=== PATIENT | female | born 1950 | race Caucasian/White ===

== ENCOUNTER 2018-01-04 13:42 | Inpatient (IN) | payer MEDICARE ==
--- NOTE | 2018-01-04 14:07 | ED ---
HPI Chest Pain - HPI Summary HPI Summary: Patient is a 67 y/o F w/ c/o midsternal chest pain onsetting around 1209. Provider in room at 1350 to evaluate. Patient describes chest pain as a "squeezing" feeling. At the time, she was at work at her desk when Sx onset. She also notes radiation of chest pain to her neck. Patient states that the chest pain was worsening and she was experiencing SOB and felt hot and nauseated. Patient's son Tommy, a paper supervisor, picked her up, did an EKG on her which was taken at [address] Fernandes to reveal NSR, nml AVIVCT, no acute changes, no ectopy, not a STEMI. 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 After BP measurement, patient's son provided 324 mg ASA and 1 nitro. In ED, patient's BP was measured to be 146/86 upon arrival. PMX of diabetes, HTN is denied but patient's son notes that mother usually has high BP but has not had Dx of HTN. PMHx of HLD is endorsed. She had a stress test 3 months ago for a bout of paroxysmal afib with Dr. Godwin. Dr. Godwin wanted her to get a cardiac dye test but patient never did. PSHx of surgery for broken leg x2. Patient takes Wellbutrin 150 mg once a day, Lexapro 20 mg, crestor 5 mg. She denies smoking, rarely drinks, no other substances. FMHx of mother with ME at 70 , quadruple bypass at 77. Patient lives with son. Home medications and allergies are reviewed. On triage, pain is rated 4/10, nitro is noted to alleviate Sx, nothing is reported to aggravate. Allergies/Adverse Reactions: Allergies Allergy/AdvReac Type Severity Reaction Status Date / Time MS Dust Mite Extract Allergy Intermediate Shortness Verified 01/04/18 13:48 of Breath MS Molds & Smuts Allergy Intermediate Shortness Verified 01/04/18 13:48 of Breath - History of Current Complaint Chief Complaint: EDChestPainROMI Time Seen by Provider: 01/04/18 13:50 Hx Obtained From: Patient, Family/Beef Breaker - son Tommy Onset/Duration: Started Hours Ago - onset around 1209, Atraumatic, Worse Since Time of Onset: 12:09 Timing: Constant Initial Severity: Moderate Current Severity: Moderate - 4/10 Pain Intensity: 4 Pain Scale Used: 0-10 Numeric - 4/10 Chest Pain Location: Mid Sternal Chest Pain Radiates: Yes Chest Pain Radiates To:: Neck Character: Pressure/Squeezing Aggravating Factor(s): Nothing Alleviating Factor(s): NTG 123 - x1 given by son (experimental flight test mechanic), pt is private vehicle Associated Signs and Symptoms: Positive: Chest Pain, Shortness of Breath, Nausea , Other: - patient reports she felt hot - Risk Factors AMI/ACS Risk Factors: Family History - Allergy/Home Medications Allergies/Adverse Reactions: Allergies Allergy/AdvReac Type Severity Reaction Status Date / Time mold Allergy Shortness Verified 01/04/18 16:05 of Breath DUST MITE EXTRACT Allergy Intermediate Shortness Uncoded 01/04/18 19:10 of Breath Home Medications: Home Medications Albuterol HFA INHALER* [Ventolin HFA Inhaler*] 1 puff INH ONCE PRN 01/04/18 [ History Confirmed 01/04/18] Escitalopram (NF) [Lexapro 20 mg (NF)] 20 mg PO DAILY 01/04/18 [History Confirmed 01/04/18] Folic Acid TAB* [Folvite TAB*] 1 mg PO DAILY 01/04/18 [History Confirmed ] Grape Seed Extract 50 mg PO DAILY 01/04/18 [History Confirmed 01/04/18] Rosuvastatin (NF) [Crestor (NF)] 5 mg PO DAILY 01/04/18 [History Confirmed 01/04] PMH/Surg Hx/FS Hx/Imm Hx Previously Healthy: No Endocrine/Hematology History: Denies: Hx Diabetes, Hx Thyroid Disease Cardiovascular History: Reports: Hx Hypercholesterolemia Denies: Hx Hypertension Respiratory History: Denies: Hx Asthma, Hx Chronic Obstructive Pulmonary Disease (COPD) GI History: Denies: Hx Ulcer - Surgical History Surgery Procedure, Year, and Place: Right leg fracture repair 1993, 2011. C- Section x3 Infectious Disease History: No Infectious Disease History: Denies: Hx Hepatitis, Hx Human Immunodeficiency Virus (HIV), Traveled Outside the [place] in Last 30 Days - Family History Known Family History: Positive: Cardiac Disease - mother with ME at 70 - Social History Occupation: Employed Full-time Lives: With Family Alcohol Use: Rare Substance Use Type: Reports: None Smoking Status (MU): Never Smoked Tobacco Review of Systems Positive: Other - patient reports feeling hot Positive: Chest Pain - with radiation to neck Positive: Shortness Of Breath Positive: Nausea Musculoskeletal: Negative Skin: Negative Neurological: Negative Psychological: Normal All Other Systems Reviewed And Are Negative: Yes Physical Exam - Summary Physical Exam Summary: Appearance: Well-appearing, mild pain distress, well-nourished Skin: Warm, color reflects adequate perfusion, dry Head: Normal Head/Face inspection, atraumatic Eyes: Conjunctiva clear ENT: Normal inspection Neck: Supple, no nodes, no JVD Respiratory: Lungs clear, normal breath sounds, no respiratory distress Cardio: RRR, No murmur, pulses normal, brisk capillary refill Abdomen: Soft, nontender Bowel sounds: Present Musculoskeletal: Strength Intact/ROM intact, no calf tenderness, no edema. Psychological: Normal Neuro: Alert, muscle tone normal, no focal deficit Triage Information Reviewed: Yes Vital Signs On Initial Exam: Initial Vitals Temp Pulse Resp BP Pulse Ox 97.2 F 88 16 146/86 97 01/04/18 13:46 01/04/18 13:46 01/04/18 13:46 01/04/18 13:46 01/04/18 13:46 Vital Signs Reviewed: Yes Diagnostics - Vital Signs Vital Signs Temp Pulse Resp BP Pulse Ox 01/04/18 13:46 97.2 F 88 16 146/86 97 - Laboratory Result Diagrams: 01/04/18 14:02 01/04/18 14:02 Lab Statement: Any lab studies that have been ordered have been reviewed, and results considered in the medical decision making process. - Radiology CXR Xray Interpretation: No Acute Changes Radiology Interpretation Completed By: Radiologist - no active cardiopulmonary disease; this report was reviewed by ed physician. - EKG 1350 Cardiac Rate: NL - rate of 82 bpm EKG Rhythm: Sinus Rhythm ST Segment: Non-Specific Ectopy: None EKG Interpretation: nml AV/IV CT, nml QTc, and nml axis, no STEMI 1712 Cardiac Rate: NL - rate of 65 bpm EKG Rhythm: Sinus Rhythm ST Segment: Non-Specific Ectopy: None EKG Interpretation: nml AV/IV CT, nml QTc, and nml axis, no STEMI. Re-Evaluation - Re-Evaluation First Eval Re-Evaluation Time: 15:36 Change: Improved Comment: No chest pain in the room, vitals are 115/81 BP, pulse is 75, o2 is 95% . Second Eval Re-Evaluation Time: 17:10 Change: Worse Comment: Trop is 0.09, EKG repeated, not a STEMI. Pt is chest pain free. Third Eval Re-Evaluation Time: 17:17 Change: Unchanged Comment: Patient reports that she is comfortable and denies chest pain. Elevated trop and need for admission was discussed. Chest Pain Course/Dx - Course Course Of Treatment: Patient is a 67 y/o F w/ c/o midsternal chest pain onsetting around 1209. Provider in room at 1351 to evaluate. Patient describes chest pain as a "squeezing" feeling. At the time, she was at work at her desk when Sx onset. She also notes radiation of chest pain to her neck. Patient states that the chest pain was worsening and she was experiencing SOB and felt hot and nauseated. Patient's son Tommy, a paper supervisor, picked her up, did an EKG on her which was taken at [address] Fernandes to reveal NSR, nml AVIVCT, no acute changes, no ectopy, not a STEMI. Patient's BP was measured to be 170/100. After BP measurement, patient's son provided 324 mg ASA and 1 nitro. In ED, patient's BP was measured to be 146/86 upon arrival. PMX of diabetes, HTN is denied but patient's son notes that mother usually has high BP but has not had Dx of HTN. PMHx of HLD is endorsed. She had a stress test 3 months ago for a bout of paroxysmal afib with Dr. Godwin. Dr. Godwin wanted her to get a "cardiac dye test" but patient never did. Patient takes Wellbutrin 150 mg once a day, Lexapro 20 mg, crestor 5 mg. She denies smoking, rarely drinks, no other substances. FMHx of mother with ME at 70, quadruple bypass at 77. On physical exam, patient is noted to be in mild pain distress. CXR showed no active cardio pulmonary disease. EKG at 1350 showed normal sinus rhythm with rate of 82 BPM, no ectopy, non-specific ST, and nml AV/IV CT, nml QTc, and nml axis, no STEMI. Labs showed TSH 4.73, T4 7.02 BNP 12, lactic .9, d-dimer < 200. First trop was 0, second was 0.09. EKG at 1712 showed normal sinus rhythm with rate of 65 BPM, no ectopy, non-specific ST, and nml AV/IV CT, nml QTc, and nml axis, no STEMI. Patients case was discussed with Dr. Booker at 1718, Dr. Booker accepts for admission. Over the course of ED stay, patient reported that she was not experiencing chest pain anymore. Elevated troponin was discussed with patient and need for admission. Patient is agreeable. Dx of elevated troponin, chest pain. - Diagnoses Provider Diagnoses: Chest pain, Elevated troponin, Non-STEMI (non-ST elevated myocardial infarction ) - Provider Notifications Discussed Care Of Patient With: Greyson Booker Time Discussed With Above Provider: 17:18 Instructed by Provider To: Other - Patients case was discussed with Dr. Booker at 1718, Dr. Booker accepts for admission. - Critical Care Time Critical Care Time: 30-74 min - 30 minutes Discharge - Sign-Out/Discharge Documenting (check all that apply): Patient Departure - admit All imaging exams completed and their final reports reviewed: Yes - Discharge Plan Condition: Good Disposition: ADMITTED TO [facility] - Billing Disposition and Condition Condition: GOOD Disposition: Admitted to [facility] - Attestation Statements Document Initiated by Scribe: Yes Documenting Scribe: Ortiz Milan Provider For Whom Scribe is Documenting (Include Credential): Rupali Fernandes MD Scribe Attestation: Ortiz Maldonado , scribed for Rupali Fernandes MD on 01/05/18 at 0106. Scribe Documentation Reviewed: Yes Provider Attestation: The documentation as recorded by the Ortiz perez accurately reflects the service I personally performed and the decisions made by me, Rupali Fernandes MD
[2018-01-04 14:12] LABS: ABS Basophils 0.1 10^3/ul (0-0.2); ABS Eosinophils 0.1 10^3/ul (0-0.6); ABS Lymphocytes 1.6 10^3/ul (1.0-4.8); ABS Monocytes 0.6 10^3/ul (0-0.8); ABS Neutrophils 3.3 10^3/ul (1.5-7.7); ABS Nucleated RBC 0 10^3/ul; Eosinophil % 2.5 % (0-6); Hematocrit 41 % (35-47); Lymphocyte % 28.7 % (25-47); Mean Corpuscular HGB Conc 34 g/dl (31-36); Mean Corpuscular Hemoglobin 32 pg (27-31); Mean Corpuscular Volume 93 fL (80-97); Mean Platelet Volume 7.7 um3 (7.4-10.4); Nucleated Red Blood Cells % 0.1; Platelet Count 219 10^3/ul (150-450); Red Blood Count 4.41 10^6/ul (4.00-5.40); Red Cell Distribution Width 13 % (10.5-15); White Blood Count 5.7 10^3/ul (3.5-10.8)
--- NOTE | 2018-01-04 14:15 | RAD ---
HISTORY: chest pain COMPARISONS: None VIEWS: 1: frontal AP view of the chest at 1:58 PM FINDINGS: LINES AND TUBES: None. CARDIOMEDIASTINAL SILHOUETTE: The cardiomediastinal silhouette is normal for portable technique. PLEURA: The costophrenic angles are sharp. No pleural abnormalities are noted. LUNG PARENCHYMA: The lungs are clear. ABDOMEN: The upper abdomen is clear. There is no subphrenic gas. BONES AND SOFT TISSUES: No bone or soft tissue abnormalities are noted. IMPRESSION: NO ACTIVE CARDIOPULMONARY DISEASE.
[2018-01-04 14:51] LABS: INR 0.86 (0.77-1.02)
[2018-01-04] MEDS ORDERED: Albuterol HFA INHALER* 8 gm MDI INH PRN (18:55)
[2018-01-04] MEDS ORDERED: Docusate CAP* 100 MG PO PRN (18:56)
[2018-01-04] MEDS: Metoprolol Tartrate TAB* 25 MG PO SCH (20:54)
[2018-01-04] MEDS: Enoxaparin(*) 80 MG/0.8 ML SYR SUBCUT SCH (20:54)
[2018-01-04] MEDS ORDERED: ROSUVASTATIN 10 MG PO SCH (21:00)
[2018-01-04] MEDS: Acetaminophen TAB* 325 MG PO PRN (21:18)
--- NOTE | 2018-01-04 22:04 | HP ---
CC: Dr. Jhaveri; Dr. Godwin* ADMISSION HISTORY AND PHYSICAL: DATE OF ADMISSION: 01/04/2018. PRIMARY CARE PROVIDER: Simran Jhaveri MD HEALTHCARE PROXY: Her son, Tommy. CODE STATUS: Full. SOURCE OF INFORMATION: History obtained from interview with patient, review of past medical records, review of ED physician records. RELIABILITY: Good. CHIEF COMPLAINT: Chest pain. HISTORY OF PRESENT ILLNESS: A 67-year-old female with past medical history of intermittent palpitations since March for which she followed up with Dr. Jhaveri, received a Holter as well as a stress test several months prior. Stress test indicated that with exercise, there were diffuse ST changes in recovery that did not reach significance. At that time, repeat stress testing with imaging was recommended if symptoms should persist. Recently, she has been feeling well; however, today, she was sitting at her desk at work and developed substernal chest pressure radiating to her left neck that became progressively worse, described as squeezing associated with a warmth as well as nausea. She went home and called their son, who is a picker / packer. She noted when ambulating home going upstairs did not make her chest discomfort worse. She walked downstairs with her son to the fire station, received an EKG as well as a nitro and 4 aspirins with a little improvement. She denied no lightheadedness or syncope, but did indicate shortness of breath at the time of her chest discomfort. She presented to the emergency room with pain was improved. Initial troponin was 0.00 increased to 0.09 for which the hospitalist service was consulted. PAST MEDICAL HISTORY: Includes hyperlipidemia; sleep apnea, not on CPAP; depression; mild intermittent asthma; history of 2 tib-fib fractures on the right with surgery as well as 3 C-sections. MEDICATIONS: Reviewed, include: 1. Albuterol HFA once as needed. 2. Grape seed extract 50 mg daily. 3. Folic acid 1 mg daily. 4. Escitalopram 20 mg daily. 5. Rosuvastatin 5 mg daily. 6. Bupropion SR 150 mg daily. 7. Vitamin D cap 2000 units daily. ALLERGIES: No known drug allergies. Please note had myalgias to atorvastatin. FAMILY HISTORY: Her mother had an NV in her 70s. Father had no NV or CVAs. SOCIAL HISTORY: Lives with her son. No tobacco. Very rare Alcohol. No illicit. REVIEW OF SYSTEMS: As per HPI. Otherwise, all other systems negative. PHYSICAL EXAMINATION GENERAL: Sitting up in bed, interactive, pleasant, in no apparent distress. VITAL SIGNS: Vitals seen by this author 156/84, heart rate of 76, respiratory rate of 16. She is 97% on room air. T-max in the emergency room is 97.2. HEENT: Oropharynx is clear. She has moist mucous membranes. Sclerae are anicteric. NECK: She has non-elevated JVD. No cervical or supraclavicular lymphadenopathy. LUNGS: Clear to auscultation. HEART: She has regular rate and rhythm. She has no murmurs, rubs, or gallops. ABDOMEN: Soft, nontender, nondistended. EXTREMITIES: Warm and well perfused without clubbing, cyanosis, or edema. She has less than 2-second cap refill on her hand. NEURO: She is A and O x3. Her cranial nerves II through XII are intact. She has no apparent anxiety, agitation, or depression. LABORATORY DATA/DIAGNOSTIC STUDIES: Pertinent laboratory reviewed. First troponin was 0.00, increased to 0.09 in two and a half hours. Her BNP is 12. White blood cell count was 5.7. Data reviewed. EKG: Normal sinus rhythm, ventricular rate of 65. No ST or T wave changes. No Q waves. Good R wave progression. Chest x-ray, impression: No active cardiopulmonary disease. ASSESSMENT AND PLAN: Ms. Fernandez is a 67-year-old female, recent stress test with diffuse ST changes in recovery that did not reach significance, now returning with chest discomfort and elevated troponin on second check. 1. Non-ST elevation myocardial infarction. Cycle troponins q.3 hours, Lovenox full dose starting this evening, metoprolol 12.5 mg q.12 hours. The patient has myalgias to atorvastatin, continue her Crestor. 2. Aspirin 81 mg starting tomorrow. She received 325 mg tonight. Based on troponins, may need echocardiogram and/or Cardiology consultation and/or stay until Sunday for stress with imaging based on previous testing. 3. Hyperlipidemia. Crestor as above. 4. Asthma. P.r.n. albuterol as above. 5. Depression. Escitalopram as indicated above. 6. DVT prophylaxis. Full dose Lovenox. [id number]/CPS #: [id number] MTDD
[2018-01-04] MEDS: Melatonin 3 MG TAB PO SCH (22:24)
[2018-01-05 05:06] LABS: ABS Basophils 0 10^3/ul (0-0.2); ABS Eosinophils 0.2 10^3/ul (0-0.6); ABS Lymphocytes 1.7 10^3/ul (1.0-4.8); ABS Monocytes 0.6 10^3/ul (0-0.8); ABS Neutrophils 2.8 10^3/ul (1.5-7.7); ABS Nucleated RBC 0 10^3/ul; Eosinophil % 3.3 % (0-6); Hematocrit 40 % (35-47); Lymphocyte % 32.6 % (25-47); Mean Corpuscular HGB Conc 35 g/dl (31-36); Mean Corpuscular Hemoglobin 32 pg (27-31); Mean Corpuscular Volume 93 fL (80-97); Mean Platelet Volume 7.7 um3 (7.4-10.4); Nucleated Red Blood Cells % 0.2; Platelet Count 192 10^3/ul (150-450); Red Blood Count 4.32 10^6/ul (4.00-5.40); Red Cell Distribution Width 14 % (10.5-15); White Blood Count 5.3 10^3/ul (3.5-10.8)
[2018-01-05 05:29] LABS: EGFR Non-African American 66.2 (>60)
[2018-01-05] MEDS: Aspirin 81 mg CHEW TAB* 81 MG TAB.CHEW PO SCH (08:26)
[2018-01-05] MEDS: Folic Acid TAB* 1 MG PO SCH (08:26)
[2018-01-05] MEDS: buPROPion SR TAB.SR* 150 MG PO SCH (08:27)
[2018-01-05] MEDS: Metoprolol Tartrate TAB* 25 MG PO SCH ×2 (08:27→20:24)
[2018-01-05] MEDS: Enoxaparin(*) 80 MG/0.8 ML SYR SUBCUT SCH ×2 (08:28→20:30)
[2018-01-05] MEDS: CMCS:Escitalopram (NF) 10 MG TAB PO SCH ×2 (08:31→20:23)
[2018-01-05] MEDS ORDERED: Atorvastatin* 10 MG TAB PO SCH (09:00)
--- NOTE | 2018-01-05 16:39 | PN ---
Subjective Date of Service: 01/05/18 Interval History: No additional CP since admission ambulating without pain no SOB Objective Active Medications: Acetaminophen (Tylenol Tab*) 650 mg PO Q4H PRN PRN Reason: FEVER/PAIN Last Admin: 01/04/18 21:18 Dose: 650 mg Albuterol (Ventolin Hfa Inhaler*) 1 puff INH ONCE PRN PRN Reason: WHEEZING Stop: 01/05/18 18:54 Aspirin (Aspirin 81 Mg Chew Tab*) 81 mg PO DAILY [facility] Last Admin: 01/05/18 08:26 Dose: 81 mg Bupropion HCl (Wellbutrin Sr Tab*) 150 mg PO DAILY [facility] Last Admin: 01/05/18 08:27 Dose: 150 mg Docusate Sodium (Colace Cap*) 100 mg PO BID PRN PRN Reason: CONSTIPATION Enoxaparin Sodium (Lovenox(*)) 80 mg SUBCUT Q12HR [facility] Stop: 01/05/18 21:01 Last Admin: 01/05/18 08:28 Dose: 80 mg Escitalopram Oxalate (Lexapro (Nf)) 20 mg PO BEDTIME [facility] Last Admin: 01/05/18 08:31 Dose: Not Given Folic Acid (Folvite Tab*) 1 mg PO DAILY [facility] Last Admin: 01/05/18 08:26 Dose: 1 mg Melatonin (Melatonin) 3 mg PO BEDTIME [facility] Last Admin: 01/04/18 22:24 Dose: 3 mg Metoprolol Tartrate (Lopressor Tab*) 12.5 mg PO Q12HR [facility] Last Admin: 01/05/18 08:27 Dose: 12.5 mg Rosuvastatin Calcium (Crestor (Nf)) 5 mg PO 2100 [facility]; Protocol Vital Signs - 8 hr 01/05/18 01/05/18 01/05/18 10:52 15:35 15:58 Temperature 98.4 F 98.0 F Pulse Rate 64 71 67 Respiratory 16 15 Rate Blood Pressure 106/63 106/63 (mmHg) O2 Sat by Pulse 96 99 94 Oximetry Oxygen Devices in Use Now: None Appearance: NAD Eyes: No Scleral Icterus, PERRLA Ears/Nose/Mouth/Throat: NL Teeth, Lips, Gums, Clear Oropharnyx Neck: NL Appearance and Movements; NL JVP, Trachea Midline Respiratory: Symmetrical Chest Expansion and Respiratory Effort, Clear to Auscultation Cardiovascular: NL Sounds; No Murmurs; No JVD, RRR Abdominal: NL Sounds; No Tenderness; No Distention, No Hepatosplenomegaly Extremities: No Edema Skin: No Rash or Ulcers Neurological: Alert and Oriented x 3 Result Diagrams: 01/05/18 04:47 01/05/18 04:47 Assess/Plan/Problems-Billing Assessment: 67 yo F h/o HLD, depression p/w chest pain - Patient Problems (1) NSTEMI (non-ST elevated myocardial infarction) Comment: Elevated trop Stress with imaging recommended based on previous stress test 1 last full dose lovenox this evening ASA metoprolol Stress on Sunday ordered NPO Midnight Sunday (2) Hyperlipidemia Comment: Home crestor (3) Depression Comment: wellbutrin (4) DVT prophylaxis Comment: lovenox tonight
[2018-01-05] MEDS: Melatonin 3 MG TAB PO SCH (20:24)
[2018-01-05] MEDS: Rosuvastatin (NF) 10 MG TAB PO SCH (20:26)
[2018-01-05] MEDS: Acetaminophen TAB* 325 MG PO PRN (20:42)
[2018-01-06] MEDS: Acetaminophen TAB* 325 MG PO PRN (03:58)
[2018-01-06] MEDS: Folic Acid TAB* 1 MG PO SCH (08:23)
[2018-01-06] MEDS: buPROPion SR TAB.SR* 150 MG PO SCH (08:23)
[2018-01-06] MEDS: Aspirin 81 mg CHEW TAB* 81 MG TAB.CHEW PO SCH (08:23)
[2018-01-06] MEDS: Metoprolol Tartrate TAB* 25 MG PO SCH ×2 (08:23→21:54)
--- NOTE | 2018-01-06 15:54 | PN ---
Subjective Date of Service: 01/06/18 Interval History: Ambulating around unit without CP/SOB No complaints Objective Active Medications: Acetaminophen (Tylenol Tab*) 650 mg PO Q4H PRN PRN Reason: FEVER/PAIN Last Admin: 01/06/18 03:58 Dose: 650 mg Aspirin (Aspirin 81 Mg Chew Tab*) 81 mg PO DAILY [facility] Last Admin: 01/06/18 08:23 Dose: 81 mg Bupropion HCl (Wellbutrin Sr Tab*) 150 mg PO DAILY [facility] Last Admin: 01/06/18 08:23 Dose: 150 mg Docusate Sodium (Colace Cap*) 100 mg PO BID PRN PRN Reason: CONSTIPATION Escitalopram Oxalate (Lexapro (Nf)) 20 mg PO BEDTIME [facility] Last Admin: 01/05/18 20:23 Dose: 20 mg Folic Acid (Folvite Tab*) 1 mg PO DAILY [facility] Last Admin: 01/06/18 08:23 Dose: 1 mg Melatonin (Melatonin) 3 mg PO BEDTIME [facility] Last Admin: 01/05/18 20:24 Dose: 3 mg Metoprolol Tartrate (Lopressor Tab*) 12.5 mg PO Q12HR [facility] Last Admin: 01/06/18 08:23 Dose: 12.5 mg Rosuvastatin Calcium (Crestor (Nf)) 5 mg PO 2100 [facility]; Protocol Last Admin: 01/05/18 20:26 Dose: 5 mg Vital Signs - 8 hr 01/06/18 01/06/18 11:35 15:33 Temperature 97.9 F 98.2 F Pulse Rate 65 68 Respiratory 20 16 Rate Blood Pressure 115/70 118/66 (mmHg) O2 Sat by Pulse 98 97 Oximetry Oxygen Devices in Use Now: None Appearance: NAD Eyes: No Scleral Icterus, PERRLA Ears/Nose/Mouth/Throat: Clear Oropharnyx, Mucous Membranes Moist Neck: NL Appearance and Movements; NL JVP, Trachea Midline Respiratory: Symmetrical Chest Expansion and Respiratory Effort, Clear to Auscultation Cardiovascular: RRR Abdominal: NL Sounds; No Tenderness; No Distention, No Hepatosplenomegaly Lymphatic: No Cervical Adenopathy Extremities: No Edema Skin: No Rash or Ulcers Neurological: Alert and Oriented x 3 Result Diagrams: 01/05/18 04:47 01/05/18 04:47 Assess/Plan/Problems-Billing Assessment: 67 yo F h/o HLD, depression p/w chest pain - Patient Problems (1) NSTEMI (non-ST elevated myocardial infarction) Comment: Elevated trop on admission Recent stress with imaging recommended based on previous stress test full dose lovenox stopped ASA metoprolol Stress on Sunday ordered NPO Midnight Sunday (2) Hyperlipidemia Comment: Home dose crestor (3) Depression Comment: wellbutrin (4) DVT prophylaxis Comment: HSQ
[2018-01-06] MEDS: Rosuvastatin (NF) 10 MG TAB PO SCH (21:51)
[2018-01-06] MEDS: CMCS:Escitalopram (NF) 10 MG TAB PO SCH (21:51)
[2018-01-06] MEDS: Melatonin 3 MG TAB PO SCH (21:53)
[2018-01-06] MEDS: Heparin VIAL(*) 5000 UNITS/ML VIAL (FIVE THOUSAND) SUBCUT SCH (21:54)
[2018-01-07] MEDS: Heparin VIAL(*) 5000 UNITS/ML VIAL (FIVE THOUSAND) SUBCUT SCH ×2 (06:08→13:48)
[2018-01-07 08:57] VITALS: BP 124/68
[2018-01-07] MEDS: Metoprolol Tartrate TAB* 25 MG PO SCH (09:03)
[2018-01-07] MEDS: buPROPion SR TAB.SR* 150 MG PO SCH (09:05)
[2018-01-07] MEDS: Folic Acid TAB* 1 MG PO SCH (09:06)
[2018-01-07] MEDS: Aspirin 81 mg CHEW TAB* 81 MG TAB.CHEW PO SCH (09:06)
[2018-01-07] MEDS ORDERED: Regadenoson* 0.4 MG/5 ML SYRINGE ONE (12:01)
--- NOTE | 2018-01-07 13:38 | RAD ---
Edited for charges. INDICATION: Chest pain. COMPARISON: There are no relevant prior studies available for comparison. Technique: A single day myocardial perfusion stress study was performed. Initially the resting study was performed. The patient was given an intravenous injection of 10.6 mCi of technetium 99m tetrofosmin and and the heart was imaged in multiple projections. The patient returned later in the day and under the direction of Dr. Lin, the patient was given intervenous injection of Lexiscan. Subsequently the patient was given intravenous injection of 25.5 mCi of technetium 99m tetrofosmin and the heart was imaged in multiple projections. Images were reconstructed in the axial, sagittal and coronal planes and in a 3- D format. FINDINGS: There appears to be normal wall motion and myocardial thickening. The left ventricular ejection fraction was calculated to be 77%. Review of the images demonstrates no evidence for significant perfusion defect. There is no evidence for infarct or ischemia. IMPRESSION: NO EVIDENCE FOR INFARCT OR ISCHEMIA. ASSESSMENT: Low risk. Based on imaging criteria from ACC/AHA 2002 Guideline Update for the Management of Patients With Chronic Stable Angina Table 23. Noninvasive Risk Stratification. MTDD
--- NOTE | 2018-01-08 08:29 | DS ---
CC: Dr. Jhaveri * DISCHARGE SUMMARY: DATE OF ADMISSION: 01/04/18 DATE OF DISCHARGE: 01/07/18 PRIMARY CARE PROVIDER: Dr. Jhaveri. DISCHARGE DIAGNOSIS: Chest pain with low-probability cardiac stress test documented on 01/07/18. SECONDARY DIAGNOSES: 1. Hyperlipidemia. 2. Sleep apnea, not on CPAP. 3. Depression. MEDICATIONS AT DISCHARGE: Unchanged from admission and include: 1. Albuterol inhaler on p.r.n. basis. 2. Wellbutrin SR 150 mg daily. 3. Lexapro 20 mg daily. 4. Folvite 1 mg daily. 5. Grape seed extract 50 mg daily. 6. Crestor 5 mg at bedtime. 7. Vitamin D 50,000 units as previously prescribed by Dr. Jhaveri. LABORATORY DATA AND STUDIES PERFORMED DURING THE HOSPITAL STAY: Please note that the patient's troponin on 01/04/18 at 2 p.m. was 0, at 4:30 p.m. was 0.09, at 8:18 p.m. was 0.07, and at 11:49 p.m. was 0 again. Troponin was also 0 approximately 2 hours after the last troponin mentioned on 01/05/18 shortly after midnight. The patient's cholesterol profile showed triglycerides of 177, cholesterol total of 161, LDL of 86, and HDL of 39. TSH was 4.7, T4 was 0.02. Cardiac stress test, which was pharmacologic nuclear part of the stress test documented on 01/07/18, impression: "Low risk." There was no evidence for infarct or ischemia and EF was calculated at 77%. HOSPITALIZATION COURSE: Aye Fernandez is a 67-year-old female who has history of chest pain for which she was evaluated with treadmill exercise stress test in July of 2017, which showed nonspecific ST changes. Subsequently, she was recommended nuclear cardiac stress test, which she had not done until she was admitted to our hospital on 01/04/18 for chest pain radiating to the jaw. For further details of the patient's presentation, please see history and physical. Briefly, the patient was admitted to the hospital. The patient's initial troponin was 0 but the second one was 0.09. Please note that troponins were basically drawn every 2 hours and the first one was negative, the second one was appeared to be significantly higher. The one at 8 p.m. on 01/04/18 was 0.07 but the one right after was at 11 p.m., was 0 again. There was some inconsistent laboratory values at that point. The patient had EKG that showed no abnormalities and she was placed on overnight observation. Due to the stress test not being able to be performed overnight, the patient was kept until Sunday where she had a pharmacologic cardiac stress test performed, which showed low risk. The patient had no recurrence of chest pain during her hospital stay. I discussed with the patient at length the inconsistencies in her laboratory values of her troponins. At this point, I suspect the possibility of cardiac disease on the basis of negative cardiac stress is rather low. I also suspect that the patient's mild elevation of troponin at admission was likely due to lab error. At this point, the patient is going to be discharged home with recommendation to follow up with her primary care provider in approximately 4 to 7 days. PHYSICAL EXAM AT THE TIME OF DISCHARGE: Blood pressure of 124/68, heart rate of 65 and regular, respiratory rate 16, oxygen saturation 96% on room air, temperature 97.6. General: The patient is a very pleasant 67-year-old female who is in no acute distress. Alert, awake, and oriented x3. HEENT: Head, atraumatic, normocephalic. Eyes: Pupils are equal and reactive to light and accommodation. Oropharynx clear, mucosa moist. Neck: Supple. No JVD. No bruit bilaterally. Cardiovascular: Regular rate and rhythm, no murmur. Respiratory: Clear to auscultation bilaterally. Abdomen: Soft, nontender. Bowel sounds present in all quadrants. Extremities: There is no edema, pulses +2 bilaterally. No clubbing or cyanosis. On neuro evaluation, speech clear. Cranial nerves II through XII grossly intact. Motor strength is 5/5 bilaterally. Please note that this is a short summary of the patient's hospitalization. Please refer to further medical records for details. [id number]/[facility] #: [id number] MTDD
== END 2018-01-07 14:30 | disposition home or self-care (01) | DRG 313 ==
LOC: ED 13:42 → MEDTELE 18:56
PROVIDERS: ADMIT Internal Medicine; ATTEND Internal Medicine
DX: R07.9 Chest pain, unspecified (principal); E78.5 Hyperlipidemia, unspecified; G47.30 Sleep apnea, unspecified; F32.9 Major depressive disorder, single episode, unspecified; J45.20 Mild intermittent asthma, uncomplicated; I48.0 Paroxysmal atrial fibrillation; Z91.048 Other nonmedicinal substance allergy status; Z72.89 Other problems related to lifestyle
CPT/HCPCS: 36415; 71045; 78452; 80048; 80053; 80061; 82550; 82553; 83605; 83735; 83880; 84436; 84443; 84484; 85025; 85379; 85610; 93005; 93017; 99284; A9270-GY; A9502; J1644; J1650; J2785

== ENCOUNTER 2018-10-02 15:35 | Emergency (ER) | payer MEDICARE ==
[2018-10-02] MEDS ORDERED: Ondansetron INJ* 2 MG/ML VIAL IV ONE (15:50)
[2018-10-02] MEDS ORDERED: Metoclopramide IV* 5 MG/ML 2 ML VIAL IV SLOW PU ONE (15:50)
[2018-10-02] MEDS ORDERED: NS 0.9% 1000 ML** 1,000 ML IV ONE (15:50)
--- NOTE | 2018-10-02 15:51 | ED ---
Adult Trauma - HPI Summary HPI Summary: A 67 y/o female brought in by [facility] ambulance presents to [facility] with a chief complaint of a fall while at [facility] falls with her grandchildren. The patient denies any LOC, blurry vision, photophobia, fever, chills, erythema of eyes, sore throat, CP, cough, abdominal pain, N/V, dysuria, hematuria, myalgia, rash, or dizziness. She says that she has head pain that radiates down to her neck and into her right shoulder and jaw and can remember hitting her head. She then had some slight confusion. She rated her headache as a 3/10 in severity. - History of Current Complaint Stated Complaint: FALL PER EMS Time Seen by Provider: 10/02/18 15:39 Hx Obtained From: Patient, EMS Mechanism of Injury: Fall Loss of Consciousness: no loss of consciousness Onset/Duration: Started Minutes Ago Onset of Pain: Immediate, Post Accident, Prior to Arrival Onset Severity: Mild Current Severity: Mild Pain Intensity: 3 Pain Scale Used: 0-10 Numeric Location: Head Aggravating Factor(s): Nothing Alleviating Factor(s): Nothing Associated Signs & Symptoms: Negative: SOB, Chest Pain, Cough, Fever, Nausea/ Vomiting, Loss of Consciousness - Additional Pertinent History Primary Care Physician: KYLAH - Allergy/Home Medications Allergies/Adverse Reactions: Allergies Allergy/AdvReac Type Severity Reaction Status Date / Time mold Allergy Shortness Verified 01/04/18 16:05 of Breath DUST MITE EXTRACT Allergy Intermediate Shortness Uncoded 01/04/18 19:10 of Breath Home Medications: Home Medications Cholecalciferol (Vitamin D3) [Vitamin D3] 2,000 unit PO DAILY 10/02/18 [History Confirmed 10/02/18] PMH/Surg Hx/FS Hx/Imm Hx Endocrine/Hematology History: Reports: Other Endocrine/Hematological Disorders - HLD Denies: Hx Diabetes, Hx Thyroid Disease, Hx Anemia Cardiovascular History: Reports: Hx Angina, Hx Hypercholesterolemia Denies: Hx Aneurysm, Hx Angioplasty, Hx Auto Implanted Cardiovert Defib, Hx Coronary Artery Disease, Hx Hypertension, Hx Myocardial Infarction, Hx Valvular Heart Disease Respiratory History: Reports: Hx Sleep Apnea Denies: Hx Asthma, Hx Chronic Bronchitis, Hx Chronic Obstructive Pulmonary Disease (COPD) GI History: Denies: Hx Cirrhosis, Hx Crohn's Disease, Hx Diverticulosis, Hx Gall Bladder Disease, Hx Gastroesophageal Reflux Disease, Hx Gastrointestinal Bleed, Hx Hiatal Hernia, Hx Irritable Bowel, Hx Jaundice, Hx Obstructive Bowel, Hx Pyloric Stenosis, Hx Ulcer History: Denies: Hx Acute Renal Failure, Hx Benign Prostatic Hyperplasia, Hx Chronic Renal Failure, Hx Dialysis, Hx Kidney Infection, Hx Kidney Stones Musculoskeletal History: Denies: Hx Arthritis, Hx Bursitis, Hx Fibromyalgia, Hx Gout, Hx Orthopedic Injury, Hx Osteoporosis, Hx Scoliosis, Hx Tendonitis Sensory History: Denies: Hx Cataracts, Hx Contacts or Glasses, Hx Eye Injury, Hx Glaucoma, Hx Legally Blind, Hx Vision Problem, Hx Deafness, Hx Hearing Aid, Hx Hearing Problem Opthamlomology History: Denies: Hx Cataracts, Hx Contacts or Glasses, Hx Eye Injury, Hx Glaucoma, Hx Legally Blind, Hx Vision Problem Neurological History: Reports: Hx Headaches Denies: Hx Dementia, Hx Developmental Delay, Hx Seizures, Hx Spinal Cord Injury, Hx Transient Ischemic Attacks (TIA) Psychiatric History: Denies: Hx Anxiety, Hx Attention Deficit Hyperactivity Disorder - Surgical History Surgery Procedure, Year, and Place: Right leg fracture repair 1993, 2011. C- Section x3 Infectious Disease History: No Infectious Disease History: Denies: Hx Hepatitis, Hx Human Immunodeficiency Virus (HIV), Hx of Known/ Suspected MRSA, Hx Shingles, Hx Tuberculosis, Hx Known/Suspected VRE, Hx Known/ Suspected VRSA, Traveled Outside the [place] in Last 30 Days - Family History Known Family History: Positive: Cardiac Disease - mother with MS at 70 - Social History Alcohol Use: Rare Substance Use Type: Reports: None Smoking Status (MU): Never Smoked Tobacco Review of Systems Negative: Fever, Chills Negative: Photophobia, Blurred Vision, Erythema Negative: Sore Throat Negative: Chest Pain Negative: Shortness Of Breath, Cough Negative: Abdominal Pain, Vomiting, Nausea Negative: dysuria, hematuria Negative: Myalgia, Edema Negative: Rash Neurological: Negative - LOC, dizziness Positive: Headache - after fall and hitting her head All Other Systems Reviewed And Are Negative: Yes Physical Exam - Summary Physical Exam Summary: Constitutional: Well-developed, Well-nourished, Alert HENT: Normocephalic. No Racoons eyes, No battles sign, No abrasion, No contusion , No hemotympanum, No maxilla facial tenderness or instability, Dentition are smooth, No dental trauma, No trismus, able to open and close mouth fully Eyes: EOM normal, PERRL Neck: Trachea normal, No stridor, No JVD, No cervical step off, No posterior cervical spine tenderness Cardio: Rhythm regular, rate normal, Heart sounds normal, Intact distal pulses, The pedal pulses are 2+ and symmetric. Radial pulses are 2+ and symmetric. Pulmonary/Chest wall: Effort normal, Breath sounds normal, (-) Stridor, Equal chest rise, No flail segment, No rib tenderness, No substernal tenderness Abd: Soft, Appearance normal. (-) Distension, (-) Tenderness, No palpable pulsatile mass, No Cullens sign, No Polanco-Turners sign. Musculoskeletal: Full ROM and no tenderness at hips, ankles, shoulders, elbows and knees; No joint swelling; No vertebral body tenderness; No paraspinal tenderness; No step off or deformity of the spine; Pelvis is stable to lateral compression and rock, no bony tenderness : No blood at urethral meatus, No vertebral body tenderness, No paraspinal tenderness, No step-off or deformity of spine, Pelvic stable to lateral compression and rock Neuro: Alert, Strength 5/5 all extremities. Reproducible Skin: Warm, Dry, Skin intact Triage Information Reviewed: Yes Vital Signs On Initial Exam: Initial Vitals Temp Pulse Resp BP Pulse Ox 98.5 F 76 18 174/81 96 10/02/18 15:38 10/02/18 15:38 10/02/18 15:38 10/02/18 15:38 10/02/18 15:38 Vital Signs Reviewed: Yes - [place] Coma Scale Best Eye Response: 4 - Spontaneous Best Motor Response: 6 - Obeys Commands Best Verbal Response: 5 - Oriented Coma Scale Total: 15 Diagnostics - Vital Signs Vital Signs Temp Pulse Resp BP Pulse Ox 10/02/18 15:38 98.5 F 76 18 174/81 96 - Laboratory Lab Statement: Any lab studies that have been ordered have been reviewed, and results considered in the medical decision making process. - CT Maxillofacial CT Interpretation Completed By: Radiologist Summary of CT Findings: No fracture of the facial bones is identified. ED physician has reviewed this imaging report. Cervical spine CT Interpretation Completed By: Radiologist Summary of CT Findings: Multilevel degenerative disc disease without evidence of fracture. ED physician has reviewed this imaging report. Brain CT Interpretation Completed By: Radiologist Summary of CT Findings: There is no evidence of intracranial mass or hemorrhage. ED physician has reviewed this imaging report. Adult Trauma Course/Dx - Course Course Of Treatment: A 67 y/o female brought in by [facility] ambulance presents to [facility] with a chief complaint of a fall while at [facility] falls with her grandchildren. The patient denies any LOC, blurry vision, photophobia, fever, chills, erythema of eyes, sore throat, CP, cough, abdominal pain, N/V, dysuria, hematuria, myalgia, rash, or dizziness. She says that she has head pain that radiates down to her neck and into her right shoulder and jaw and can remember hitting her head. She then had some slight confusion. She rated her headache as a 3/10 in severity. The physical exam was unremarkable and the patient had no bony tenderness and was able to open and close her mouth fully. In the ED course the patient was given Reglan IV, Zofran IV and sodium chloride IV. Maxillofacial CT impression: No fracture of the facial bones is identified. Cervical spine CT impression: Multilevel degenerative disc disease without evidence of fracture. Brain CT impression: There is no evidence of intracranial mass or hemorrhage. She was instructed to avoid mental or physical exertion and take Motrin as necessary. The patient will be discharged home with a prescription for Zofran and follow up with her PCP. The patient is agreeable with this plan. - Diagnoses Provider Diagnoses: Concussion Discharge - Sign-Out/Discharge Documenting (check all that apply): Patient Departure - DC Patient Received Moderate/Deep Sedation with Procedure: No - Discharge Plan Condition: Stable Disposition: HOME Prescriptions: Ondansetron ODT TAB* [Zofran 4 MG Odt TAB*] 4 mg PO Q8H PRN #10 tab.odt PRN Reason: Nausea/Vomiting Patient Education Materials: Concussion (ED) Referrals: Simran Jhaveri MD [Primary Care Provider] - Additional Instructions: Avoid mental or physical exertion. Take Motrin as necessary. RETURN TO THE EMERGENCY DEPARTMENT FOR CHANGING OR WORSENING SYMPTOMS - Attestation Statements Document Initiated by Scribe: Yes Documenting Scribe: Jerry Diane Provider For Whom Scribe is Documenting (Include Credential): Adiel Almazan MD Scribe Attestation: I, Jerry Diane, scribed for Adiel Almazan MD on 10/02/18 at 2156. Status of Scribe Document: Ready
[2018-10-02] MEDS ORDERED: diPHENhydraMINE IV* 50 MG/ML 1 ml VIAL (BENADRYL) SLOW PUSH ONE (16:27)
[2018-10-02 17:37] VITALS: BP 127/71
== END 2018-10-02 17:32 | disposition home or self-care (01) ==
LOC: ED 15:35
DX: S06.0X0A Concussion without loss of consciousness, initial encounter (principal); W19.XXXA Unspecified fall, initial encounter; Y92.830 Public park as the place of occurrence of the external cause; M50.323 Other cervical disc degeneration at C6-C7 level
CPT/HCPCS: 70450; 70486; 72125; 96361; 96374; 96375; 99283; J1200; J2405; J2765